=== PATIENT | female | born 1990 | race Caucasian/White ===

== ENCOUNTER 2024-02-24 08:01 | Emergency (ER) | payer OTHER, SELFPAY ==
[2024-02-24 08:10] VITALS: BP 107/76; PULSE 115; RESP 16; TEMP 36.5; O2SAT 100
--- NOTE | 2024-02-24 08:15 | ED.NAVMDI ---
HPI - Nausea/Vomiting/Diarrhea General Chief complaint: Nausea/Vomiting/Diarrhea Stated complaint: VOMITING/DIARRHEA/CHILLS/SWEATING Time Seen by Provider: 02/24/24 08:15 Source: patient Mode of arrival: ambulatory Limitations: no limitations History of Present Illness HPI Narrative: Arianna is a 33-year-old female patient presenting to the clinic today with complaints of nausea, vomiting, diarrhea, chills, and sweating since 1:00 a.m. this morning. She reports approximately every 15-30 minute she has vomiting and diarrhea. Thinks that she may have food poisoning or the norovirus. Denies any fever. Does not currently have any abdominal pain. Related Data Home Medications Medication Instructions Recorded Confirmed drospirenone 3 mg-ethinyl 1 tablet PO DAILY 02/24/24 02/24/24 estradiol 0.02 mg tablet (Vestura (28)) Allergies Allergy/AdvReac Type Severity Reaction Status Date / Time No Known Allergies Allergy Verified 02/24/24 08:17 Review of Systems Review of Systems: Pertinent positives per HPI. Patient denies any fever, rash, headache, visual changes, dizziness, cough, runny nose, sore throat, shortness of breath, chest pain, palpitations, constipation,or any urinary issues. PMFSH Comments At the time of my signature, I reviewed and agree with the nursing past medical, surgical, social, and family history. There is no relevant family history pertinent to the patient complaint. Exam Narrative: General: Well-developed, well nourished, in no apparent distress Head: Normocephalic, atraumatic Eyes: Pupils equally round and reactive to light bilaterally, EOM intact, sclera and conjunctive clear, no discharge, lids normal Ears: TMs intact and clear, ear canals clear, no drainage, grossly hearing normal. Nose: Nares patent, no discharge, no inflammation, no sinus tenderness. Mouth: Oropharynx without lesions or masses, good dentition, mucous membranes dry Neck: Supple, trachea midline, no enlargement of anterior or posterior cervical nodes, no thyroid masses or goiter palpable. Cardio: Regular rate and rhythm, s1 and s2 normal, no murmur appreciated. Resp: Clear to auscultation bilaterally anteriorly and posteriorly, no rhonchi, rales, wheezing or rubs Abdomen: Soft, pliable, bowel sounds present in all quadrants, mild generalized tender to palpation, no organomegly, no CVAT tenderness. Course Course Emergency Course: Portions of this record may have been created with voice recognition software. Level of Care: Express Care Visit Vital Signs Vital signs: Vital Signs Temperature 36.5 C 02/24/24 08:10 Pulse Rate 115 H 02/24/24 08:10 Respiratory Rate 16 02/24/24 08:10 Blood Pressure 107/76 02/24/24 08:10 Pulse Oximetry 100 02/24/24 08:10 Temperature 36.5 C 02/24/24 08:10 Pulse Rate 115 H 02/24/24 08:10 Respiratory Rate 16 02/24/24 08:10 Blood Pressure 107/76 02/24/24 08:10 Pulse Oximetry 100 02/24/24 08:10 Oxygen Delivery Room Air 02/24/24 08:12 Vital signs reviewed MDM - Nausea/Vomiting/Diarrhea MDM Narrative Medical decision making narrative: At the time of visit patient is resting comfortably on the exam table. Patient appears to be nontoxic. Plan: Offer to do COVID and influenza testing and patient declined. I suspect patient has gastroenteritis with some mild dehydration. Will send in prescription for Zofran and Levsin. Supportive measures were discussed with the patient and they voiced understanding discharge instructions and agrees to treatment plan. Return precautions reviewed Differential Diagnosis Differential diagnosis: Likely traveler's diarrhea, food poisoning, gastroenteritis, clostridium difficile infection, drug-induced nausea and vomiting, dehydration and other (COVID) Discharge Plan Discharge Clinical Impression: Gastroenteritis Patient Disposition: Home, Self-Care Condition: Stable Instructions: Antibiotic Fo
[2024-02-24] MEDS: ONDANSETRON HCL ODT 4 MG TABLET PO (08:29)
== END 2024-02-24 08:42 | disposition home or self-care (01) ==
PROVIDERS: Emergency Provider Nurse Practitioner Family
DX: K52.9 Noninfective gastroenteritis and colitis, unspecified (principal)
CPT/HCPCS: 99213; A9270; G0463